=== PATIENT | male | born 1985 | race Caucasian/White ===

== ENCOUNTER 2021-02-14 23:07 | Emergency (ER) | payer OTHER ==
[2021-02-14] MEDS ORDERED: traMADol 50 MG Tab PO ONE (23:08)
[2021-02-14] MEDS ORDERED: Cyclobenzaprine 10 MG Tab PO ONE (23:08)
[2021-02-14] MEDS ORDERED: Ketorolac 60 MG/2 ML SDV IM ONE (23:32)
--- NOTE | 2021-02-15 07:22 | ER ---
DATE SEEN: 02/14/2021 CHIEF COMPLAINT: Back pain. HISTORY OF PRESENT ILLNESS: This is a 35-year-old male brought in with back pain, started two days ago, was seen at a walk-in clinic, given prednisone, which has not made a difference. It is on the left side, radiates down to the legs, but no weakness. PAST MEDICAL HISTORY: No other active medical problems. He does say that previously he has had these attacks of sciatica. ALLERGIES: None. PHYSICAL EXAMINATION: GENERAL: He is not in distress. VITAL SIGNS: He is afebrile. LOW BACK: No obvious swelling. There is tenderness on the left gluteus lorrie and a positive leg raising test. NEURO: Exam is normal. Mental status, alert. IMPRESSION: Chronic radicular back pain. TREATMENT: Ketorolac 60 mg IM and tramadol 50 mg t.i.d. orally and Flexeril at night. I suggested physical therapy. He will follow up with his PCP. /[id number] NADEEN/MARGARITO
== END 2021-02-14 23:42 | disposition home or self-care (01) ==
LOC: FB.ED 23:07
DX: M54.16 Radiculopathy, lumbar region (principal)
CPT/HCPCS: 96372; 99283; A9270-GY; J1885